=== PATIENT | female | born 1930 | race Asian ===

== ENCOUNTER 2019-03-16 07:59 | Emergency (ER) | payer OTHER ==
[~2019-03-16] VITALS: Ht 142.2 cm; Wt 52.0 kg
[2019-03-16 08:09] VITALS: Ht 142.2 cm; Wt 52.0 kg
[2019-03-16] MEDS ORDERED: AMLODIPINE 10 MG TAB PO ONE (08:30)
--- NOTE | 2019-03-16 08:59 | ERD ---
ER Documentation Chief Complaint Chief Complaint DIZZINESS THIS MORNING. DID NOT TAKE BP MEDS. HYPERTENSIVE HPI 88-year-old female who presents to the emergency room complaining of lighthea dedness and elevated blood pressure. She states that she was at [facility] emergency room for similar symptoms on Tuesday and was transitioned to amlodipine 10 mg from 5 mg. She did not take her blood pressure medications this morning. She only started the 10 mg dose yesterday. Her blood pressure this morning was elevated in the 200 range. She had lightheadedness and felt like she had a mild gradual onset frontal headache. She denied any chest pain or chest pressure. No shortness of breath nausea or vomiting. Her symptoms are very similar to when her blood pressure is elevated. ROS All systems reviewed and are negative except as per history of present illness. PMhx/Soc History of Surgery: No Anesthesia Reaction: No Hx Neurological Disorder: No Hx Respiratory Disorders: No Hx Cardiac Disorders: Yes (HTN) Hx Psychiatric Problems: No Hx Miscellaneous Medical Probl: No Hx Alcohol Use: No Hx Substance Use: No Hx Tobacco Use: No Smoking Status: Never smoker FmHx Family History: No diabetes Physical Exam Vitals Vital Signs Date Temp Pulse Resp B/P (MAP) Pulse Ox O2 O2 Flow FiO2 Time Delivery Rate 03/16/19 98.4 75 16 180/85 98 08:09 (116) Physical Exam General: Well developed, well nourished, no acute distress Head: Normocephalic, atraumatic. Eyes: Pupils equally reactive, EOM intact ENT: Moist mucous membranes Neck: Supple, no lymphadenopathy Respiratory: Lungs clear bilaterally, no distress Cardiovascular: RRR, no murmurs, rubs, or gallops Abdominal: Soft, non-tender, non-distended, no peritoneal signs : Deferred MSK: No edema, no unilateral swelling, 5/5 strength Neurologic: Alert and oriented, moving all extremities, normal speech, no focal weakness, no cerebellar signs Skin: No rash Psych: Normal mood Results 24 hrs Current Medications Medications Dose Sig/Artis Start Time Status Last (Trade) Ordered Route PRN Stop Time Admin Dose Reason Admin Amlodipine 10 mg ONCE ONCE 03/16/19 DC 03/16/19 Besylate PO 08:30 08:34 (Norvasc) 03/16/19 08:31 Procedures/MDM MEDICAL DECISION MAKING: Patient presents with minimal symptoms related to hypertensive urgency. Her symptoms are very consistent with chronic symptoms. I do not believe the patient has signs or symptoms concerning for endorgan dysfunction. The patient has no signs clinically concerning for intracranial hemorrhage, stroke, ACS. I do not believe diagnostic imaging or laboratory testing is necessary. ER COURSE: * The patient was given her regular dose of amlodipine. Blood pressure has improved dramatically into the 160 range. The patient is asymptomatic and safe for discharge. CONSULTATION: None DISPOSITION PLAN: The patient does not have an identifiable emergent medical condition that warrants inpatient hospitalization at this time. The patient is deemed safe for discharge with outpatient follow-up. We discussed follow up with the patient's primary care doctor within 24 to 48 hours as needed. We also discussed return to the emergency room for worsening symptoms or worsening condition. Outpatient referral: None required Discharge Medications: None required Departure Diagnosis: Primary Impression: Asymptomatic hypertensive urgency Condition: Stable Patient Instructions: Hypertension, Established, Out Of Control Referrals: [facility] YOU HAVE RECEIVED A MEDICAL SCREENING EXAM AND THE RESULTS INDICATE THAT YOU DO NOT HAVE A CONDITION THAT REQUIRES URGENT TREATMENT IN THE EMERGENCY DEPARTMENT. FURTHER EVALUATION AND TREATMENT OF YOUR CONDITION CAN WAIT UNTIL YOU ARE SEEN IN YOUR DOCTORS OFFICE WITHIN THE NEXT 1-2 DAYS. IT IS YOUR RESPONSIBILITY TO MAKE AN APPOINTMENT FOR [facility]. IF YOU HAVE A PRIMARY DOCTOR --you should call your primary doctor and schedule an appointment IF YOU DO NOT HAVE A PRIMARY DOCTOR YOU CAN CALL OUR PHYSICIAN REFERRAL HOTLINE AT IF YOU CAN NOT AFFORD TO SEE A PHYSICIAN YOU CAN CHOSE FROM THE FOLLOWING [facility] [address] [facility]. [facility] [address] [facility] [address] [facility]. [facility] [address] [facility]. [facility] [address] [facility]. [facility]. [address] [facility] YOU HAVE RECEIVED A MEDICAL SCREENING EXAM AND THE RESULTS INDICATE THAT YOU DO NOT HAVE A CONDITION THAT REQUIRES URGENT TREATMENT IN THE EMERGENCY DEPARTMENT. FURTHER EVALUATION AND TREATMENT OF YOUR CONDITION CAN WAIT UNTIL YOU ARE SEEN IN YOUR DOCTORS OFFICE WITHIN THE NEXT 1-2 DAYS. IT IS YOUR RESPONSIBILITY TO MAKE AN APPOINTMENT FOR FOLOW-UP CARE. IF YOU HAVE A PRIMARY DOCTOR --you should call your primary doctor and schedule and appointment IF YOU DO NOT HAVE A PRIMARY DOCTOR YOU CAN CALL OUR PHYSICIAN REFERRAL HOTLINE AT . IF YOU CAN NOT AFFORD TO SEE A PHYSICIAN YOU CAN CHOSE FROM THE FOLLOWING [facility] INSTITUTIONS: [facility] [address] [place] [address] [facility] [address] [place] [address] [facility] [address] [place] [address] Additional Instructions: Call your primary care doctor TOMORROW for an appointment during the next 1 WEEK.Tell the office secretary that you were referred from this facility.See the doctor sooner or return here if your condition worsens before your appointment time. BETZAIDA HERNANDEZ MD Mar 16, 2019 08:59
[2019-03-16] MEDS ORDERED: AMLO-147 PO (10:41)
[2019-03-16] MEDS ORDERED: ALEN70TA5 PO (10:42)
[2019-03-16] MEDS ORDERED: ATOR40TA68 PO (10:42)
[2019-03-16 11:27] VITALS: BP 142/55; PULSE 75; RESP 16
== END 2019-03-16 11:28 | disposition home or self-care (01) ==
LOC: E/R 07:59
DX: I16.0 Hypertensive urgency (principal); I10 Essential (primary) hypertension; R40.2142 Coma scale, eyes open, spontaneous, at arrival to emergency department; R40.2362 Coma scale, best motor response, obeys commands, at arrival to emergency department; R40.2252 Coma scale, best verbal response, oriented, at arrival to emergency department
CPT/HCPCS: 99283